=== PATIENT | male | born 1955 | race Caucasian/White ===

== ENCOUNTER 2018-10-13 12:12 | Observation (INO) ==
[2018-10-13] MEDS ORDERED: Isovue-370 500 ML INFUS..BTL IV ONE (12:23)
[2018-10-13 13:08] LABS: Hematocrit 50.9 % (37.5-50.1); Hemoglobin 17.4 g/dL (12.9-16.9); Mean Corpuscular HGB Conc 34.2 g/dL (31.6-35.5); Mean Corpuscular Hemoglobin 31.9 pg (28.0-33.3); Mean Corpuscular Volume 93.4 fL (83.0-100.0); Platelet Count 350 K/mcL (140-400); Red Blood Count 5.45 M/mcL (4.19-5.50); Red Cell Distribution Width 11.8 % (11.5-14.5)
--- NOTE | 2018-10-13 13:19 | Emergency Department Note ---
Disposition Clinical Impression: TIA (transient ischemic attack) Syncope Qualifiers: Syncope type: unspecified Qualified Code(s): R55 - Syncope and collapse Disposition: Admitted As Inpatient Condition: Good Weakness HPI - General Chief complaint: ED Weakness Stated complaint: "having strokes" Time Seen by Provider: 10/13/18 12:21 Source: patient Mode of arrival: ambulatory Limitations: no limitations Nursing Notes Reviewed: Yes Vital Signs Reviewed: Yes - History of Present Illness HPI Narrative: Patient presents to the ED with the chief complaint of "I had another stroke." Patient reports that he has had 3 previous strokes. He is followed by neurology here with Dr. Simon. States that his last MRI was just last month after his last stroke in June. States that he had one episode earlier this week where he got very lightheaded and almost passed out. He states this is the same presentation he had before. He reports that yesterday at noon. He was getting out of his truck and as soon as he stepped down he felt very lightheaded and dizzy, got tunnel vision, and states the next thing he knew he woke up, flat on the floor. He states he was very disoriented when he woke up and it took him several minutes to get up. He leaned over his workbench for some time until he felt good enough to walk inside. He is presenting now because he called the neurologist office and they told him to come over for workup. Patient denies any fever, chills, chest pain or shortness of breath. He also denies any abdominal pain, nausea, vomiting, diarrhea. No rashes or diaphoresis. Pain Scale: 0 - Related Data Home Medications Medication Instructions Recorded Confirmed RX: Lisinopril [Zestril] 5 mg PO DAILY 11/19/16 10/13/18 Aspirin [Adult Aspirin Regimen] 81 mg PO DAILY 10/13/18 10/13/18 Allergies Allergy/AdvReac Type Severity Reaction Status Date / Time No Known Allergies Allergy Verified 10/13/18 16:06 Review of Systems: As reviewed in the HPI. All other systems reviewed are negative or normal. Past Medical History - Past Medical History Attestation: Yes The following information was validated with the patient. Source: patient Medical history: Reports: hypertension, TIA Surgical history: Reports: appendectomy, other Psychiatric history: Reports: no psych history - Social History Smoking Status: Current every day smoker Smokeless Tobacco Status: No Alcohol use: Reports: occasionally, heavy Drug use: Reports: none Physical Exam CONSTITUTIONAL: [well appearing, alert and in no acute distress] EYES: [EOMI, clear conjunctiva, PERRLA] HENT: [Normocephalic, atraumatic, moist mucus membranes, normal oropharynx] NECK: [normal inspection, full ROM, trachea midline, no obvious swelling] PULMONARY: [normal lung sounds bilaterally, normal chest rise and fall, no respiratory distress or stridor, no wheezes, no rales, no rhonchi CARDIOVASCULAR: [regular rate, regular rhythm, normal heart sounds, no murmurs, distal extremities are warm and well perfused] GASTROINSTESTINAL: [soft, non-tender, non-rigid, non-distended, no guarding, no rebound, normal bowel sounds] GENITOURINARY/RECTAL: [deferred] NEUROLOGIC: [Alert, oriented x3, normal speech, moves all extremities, normal strength and sensation throughout] EXTREMITIES: [Normal inspection, full ROM, no tenderness, no pedal edema, normal capillary refill] MUSCULOSKELETAL: [no gross deformities, atraumatic] SKIN: [No cyanosis, no diaphoresis, normal color, warm, no rash] PSYCHIATRIC: [normal mood and affect] - General General appearance: alert, in no apparent distress Course - Reevaluation(s) Reevaluation #1: Patient's CTA is back. It is negative. Remains neurologically intact. In 80. We will admit the hospitalist service for neurological consult and MRI. I do t hink this is likely more of a syncopal episode and we will recommend a cardiac evaluation with echo as well Vital Signs Temperature 98.1 F 10/13/18 12:21 Pulse Rate 67 10/13/18 12:21 Respiratory Rate 14 10/13/18 12:21 Blood Pressure 125/83 10/13/18 12:21 O2 Sat by Pulse Oximetry 97 10/13/18 12:21 Temperature 98.1 F 10/13/18 12:21 Pulse Rate 68 10/13/18 15:35 Respiratory Rate 17 10/13/18 18:36 Blood Pressure 157/74 10/13/18 18:36 O2 Sat by Pulse Oximetry 97 10/13/18 15:35 Oxygen Delivery Oxygen Delivery Nasal Cannula Weakness - Lab Data Result diagrams: 10/13/18 12:28 10/13/18 12:28 Lab Results 10/13/18 10/13/18 10/13/18 Range/Units 12:28 12: 12:28 WBC 10.9 (4.3-11.1) K/mcL RBC 5.45 (4.19-5.50) M/mcL Hgb 17.4 H (12.9-16.9) g/dL Hct 50.9 H (37.5-50.1) % MCV 93.4 (83.0-100.0) fL MCH 31.9 (28.0-33.3) pg MCHC 34.2 (31.6-35.5) g/dL RDW 11.8 (11.5-14.5) % Plt Count 350 (140-400) K/mcL MPV 9.0 L (9.4-12.4) fL PT 10.6 (9.4-12.1) Seconds INR 0.9 APTT 32.7 (26.0-36.0) Seconds Sodium 137 (136-145) mEq/L Potassium 4.0 (3.5-5.1) mEq/L Chloride 103 (98-107) mEq/L Carbon Dioxide 26 (23-29) mEq/L BUN 19 (8-23) mg/dL Creatinine 0.98 (0.70-1.30) mg/dL Est GFR ( Amer) > 60 (> 60) Est GFR (Non-Af Amer) > 60 (> 60) BUN/Creatinine Ratio 19 (6-26) Glucose 99 (70-105) mg/dL POC Glucose (70-99) mg/dL Calculated Osmolality 286 (280-300) Calcium 9.4 (8.6-10.3) mg/dL Troponin I < 0.03 (< 0.04) ng/mL Urine Color (Yellow) Urine Clarity (Clear) Urine pH (5.0-8.0) pH Units Ur Specific [place] (1.010-1.025) Urine Protein (Neg-Trace) mg/dL Urine Glucose (UA) (Normal) mg/dL Urine Ketones (Negative) mg/dL Urine Blood (Negative) Urine Nitrite (Negative) Urine Bilirubin (Negative) Urine Urobilinogen (Normal) mg/dL Ur Leukocyte Esterase (Negative) Ur Culture Indicated? (NO) Urine Opiates Screen (Tatudg=370) ng/mL Ur Barbiturates Screen (Xshuad=116) ng/mL Ur Phencyclidine Scrn (Cutoff=25) ng/mL Ur Amphetamines Screen (Qxssry=1204) ng/mL U Benzodiazepines Scrn (Xgkowb=891) ng/mL Urine Cocaine Screen (Cutoff= 300) ng/mL U Marijuana (THC) Screen (Cutoff = 50) ng/mL Ur Drug Screen Interp Ethyl Alcohol 110 H (Less than 10) mg/dL 10/13/18 10/13/18 10/13/18 Range/Units 13:04 13:31 13:31 WBC (4.3-11.1) K/mcL RBC (4.19-5.50) M/mcL Hgb (12.9-16.9) g/dL Hct (37.5-50.1) % MCV (83.0-100.0) fL MCH (28.0-33.3) pg MCHC (31.6-35.5) g/dL RDW (11.5-14.5) % Plt Count (140-400) K/mcL MPV (9.4-12.4) fL PT (9.4-12.1) Seconds INR APTT (26.0-36.0) Seconds Sodium (136-145) mEq/L Potassium (3.5-5.1) mEq/L Chloride (98-107) mEq/L Carbon Dioxide (23-29) mEq/L BUN (8-23) mg/dL Creatinine (0.70-1.30) mg/dL Est GFR ( Amer) (> 60) Est GFR (Non-Af Amer) (> 60) BUN/Creatinine Ratio (6-26) Glucose (70-105) mg/dL POC Glucose 92 (70-99) mg/dL Calculated Osmolality (280-300) Calcium (8.6-10.3) mg/dL Troponin I (< 0.04) ng/mL Urine Color Yellow (Yellow) Urine Clarity Clear (Clear) Urine pH 6.0 (5.0-8.0) pH Units Ur Specific [place] 1.006 L (1.010-1.025) Urine Protein Negative (Neg-Trace) mg/dL Urine Glucose (UA) Normal (Normal) mg/dL Urine Ketones Negative (Negative) mg/dL Urine Blood Negative (Negative) Urine Nitrite Negative (Negative) Urine Bilirubin Negative (Negative) Urine Urobilinogen Normal (Normal) mg/dL Ur Leukocyte Esterase Negative (Negative) Ur Culture Indicated? NO (NO) Urine Opiates Screen Negative (Hwasmx=039) ng/mL Ur Barbiturates Screen Negative (Vqgxtb=913) ng/mL Ur Phencyclidine Scrn Negative (Cutoff=25) ng/mL Ur Amphetamines Screen Negative (Eeducz=1693) ng/mL U Benzodiazepines Scrn Negative (Ncxpqp=469) ng/mL Urine Cocaine Screen Negative (Cutoff= 300) ng/mL U Marijuana (THC) Screen Negative (Cutoff = 50) ng/mL Ur Drug Screen Interp See Below Ethyl Alcohol (Less than 10) mg/dL
[2018-10-13 13:32] LABS: BUN/Creatinine Ratio 19 (6-26); Blood Urea Nitrogen 19 mg/dL (8-23); Calcium 9.4 mg/dL (8.6-10.3); Carbon Dioxide 26 mEq/L (23-29); Chloride 103 mEq/L (98-107); Glucose 99 mg/dL (70-105); Osmolality,Calculated 286 (280-300); Sodium 137 mEq/L (136-145); Troponin I < 0.03 ng/mL (< 0.04); eGFR For Non-African Americans > 60 (> 60)
[2018-10-13 13:40] LABS: INR 0.9; Prothrombin Time 10.6 Seconds (9.4-12.1)
[2018-10-13 13:43] LABS: Activated Partial Thrombo Time 32.7 Seconds (26.0-36.0)
[2018-10-13 15:09] LABS: Bilirubin,Urine Negative (Negative); Blood,Urine Negative (Negative); Clarity,Urine Clear (Clear); Color,Urine Yellow (Yellow); Glucose,Urine (UA) Normal (Normal); Ketones,Urine Negative (Negative); Leukocyte Esterase,Urine Negative (Negative); Nitrite,Urine Negative (Negative); Protein,Urine Negative (Neg-Trace); Specific Gravity,Urine 1.006 (1.010-1.025); Urobilinogen,Urine Normal (Normal)
[2018-10-13 15:30] LABS: Amphetamine Screen,Urine Negative ng/mL (Cutoff=1000); Barbiturate Screen,Urine Negative ng/mL (Cutoff=200); Benzodiazepines Screen,Urine Negative ng/mL (Cutoff=200); Cannabinoid Screen,Urine Negative ng/mL (Cutoff = 50); Cocaine Screen,Urine Negative ng/mL (Cutoff= 300); Opiate Screen,Urine Negative ng/mL (Cutoff=300); Phencyclidine Screen,Urine Negative ng/mL (Cutoff=25)
[2018-10-13] MEDS ORDERED: Acetaminophen 325 MG TABLET PO PRN (16:43)
--- NOTE | 2018-10-13 16:44 | Emergency Department Note ---
Disposition Clinical Impression: TIA (transient ischemic attack) Syncope Qualifiers: Syncope type: unspecified Qualified Code(s): R55 - Syncope and collapse Disposition: Admitted As Inpatient Condition: Good Referrals: Lenard Velasquez MD [Primary Care Provider] - Forms: ED Satisfaction Letter Time of Disposition: 16:45 General Adult HPI - General Chief complaint: ED Weakness Stated complaint: "having strokes" Time Seen by Provider: 10/13/18 12:21 Source: patient Mode of arrival: ambulatory Limitations: no limitations - History of Present Illness Pain Scale: 0 - Related Data Home Medications Medication Instructions Recorded Confirmed Lisinopril [Zestril] 5 mg PO DAILY 11/19/16 10/13/18 Aspirin [Adult Aspirin Regimen] 81 mg PO DAILY 10/13/18 10/13/18 Allergies Allergy/AdvReac Type Severity Reaction Status Date / Time No Known Allergies Allergy Verified 10/13/18 16:06 Past Medical History - Past Medical History Medical history: Reports: hypertension, TIA Surgical history: Reports: appendectomy, other Psychiatric history: Reports: no psych history - Social History Smoking Status: Current every day smoker Smokeless Tobacco Status: No Alcohol use: Reports: occasionally, heavy Drug use: Reports: none Physical Exam - General Limitations: no limitations General appearance: alert, in no apparent distress Course Vital Signs Temperature 98.1 F 10/13/18 12:21 Pulse Rate 67 10/13/18 12:21 Respiratory Rate 14 10/13/18 12:21 Blood Pressure 125/83 10/13/18 12:21 O2 Sat by Pulse Oximetry 97 10/13/18 12:21 Temperature 98.1 F 10/13/18 12:21 Pulse Rate 68 10/13/18 15:35 Respiratory Rate 16 10/13/18 15:35 Blood Pressure 127/65 10/13/18 15:35 O2 Sat by Pulse Oximetry 97 10/13/18 15:35 Oxygen Delivery Oxygen Delivery Room Air Medical Decision Making - Lab Data Result diagrams: 10/13/18 12:28 10/13/18 12:28 Lab Results 10/13/18 10/13/18 10/13/18 Range/Units 12:28 12:28 12:28 WBC 10.9 (4.3-11.1) K/mcL RBC 5.45 (4.19-5.50) M/mcL Hgb 17.4 H (12.9-16.9) g/dL Hct 50.9 H (37.5-50.1) % MCV 93.4 (83.0-100.0) fL MCH 31.9 (28.0-33.3) pg MCHC 34.2 (31.6-35.5) g/dL RDW 11.8 (11.5-14.5) % Plt Count 350 (140-400) K/mcL MPV 9.0 L (9.4-12.4) fL PT 10.6 (9.4-12.1) Seconds INR 0.9 APTT 32.7 (26.0-36.0) Seconds Sodium 137 (136-145) mEq/L Potassium 4.0 (3.5-5.1) mEq/L Chloride 103 (98-107) mEq/L Carbon Dioxide 26 (23-29) mEq/L BUN 19 (8-23) mg/dL Creatinine 0.98 (0.70-1.30) mg/dL Est GFR ( Amer) > 60 (> 60) Est GFR (Non-Af Amer) > 60 (> 60) BUN/Creatinine Ratio 19 (6-26) Glucose 99 (70-105) mg/dL POC Glucose (70-99) mg/dL Calculated Osmolality 286 (280-300) Calcium 9.4 (8.6-10.3) mg/dL Troponin I < 0.03 (< 0.04) ng/mL Urine Color (Yellow) Urine Clarity (Clear) Urine pH (5.0-8.0) pH Units Ur Specific [place] (1.010-1.025) Urine Protein (Neg-Trace) mg/dL Urine Glucose (UA) (Normal) mg/dL Urine Ketones (Negative) mg/dL Urine Blood (Negative) Urine Nitrite (Negative) Urine Bilirubin (Negative) Urine Urobilinogen (Normal) mg/dL Ur Leukocyte Esterase (Negative) Ur Culture Indicated? (NO) Urine Opiates Screen (Embnds=477) ng/mL Ur Barbiturates Screen (Mnsxxq=516) ng/mL Ur Phencyclidine Scrn (Cutoff=25) ng/mL Ur Amphetamines Screen (Cuvums=9920) ng/mL U Benzodiazepines Scrn (Cpmmdi=957) ng/mL Urine Cocaine Screen (Cutoff= 300) ng/mL U Marijuana (THC) Screen (Cutoff = 50) ng/mL Ur Drug Screen Interp 10/13/18 10/13/18 10/13/18 Range/Units 13:04 13:31 13:31 WBC (4.3-11.1) K/mcL RBC (4.19-5.50) M/mcL Hgb (12.9-16.9) g/dL Hct (37.5-50.1) % MCV (83.0-100.0) fL MCH (28.0-33.3) pg MCHC (31.6-35.5) g/dL RDW (11.5-14.5) % Plt Count (140-400) K/mcL MPV (9.4-12.4) fL PT (9.4-12.1) Seconds INR APTT (26.0-36.0) Seconds Sodium (136-145) mEq/L Potassium (3.5-5.1) mEq/L Chloride (98-107) mEq/L Carbon Dioxide (23-29) mEq/L BUN (8-23) mg/dL Creatinine (0.70-1.30) mg/dL Est GFR ( Amer) (> 60) Est GFR (Non-Af Amer) (> 60) BUN/Creatinine Ratio (6-26) Glucose (70-105) mg/dL POC Glucose 92 (70-99) mg/dL Calculated Osmolality (280-300) Calcium (8.6-10.3) mg/dL Troponin I (< 0.04) ng/mL Urine Color Yellow (Yellow) Urine Clarity Clear (Clear) Urine pH 6.0 (5.0-8.0) pH Units Ur Specific [place] 1.006 L (1.010-1.025) Urine Protein Negative (Neg-Trace) mg/dL Urine Glucose (UA) Normal (Normal) mg/dL Urine Ketones Negative (Negative) mg/dL Urine Blood Negative (Negative) Urine Nitrite Negative (Negative) Urine Bilirubin Negative (Negative) Urine Urobilinogen Normal (Normal) mg/dL Ur Leukocyte Esterase Negative (Negative) Ur Culture Indicated? NO (NO) Urine Opiates Screen Negative (Xzfagl=687) ng/mL Ur Barbiturates Screen Negative (Bpnkai=893) ng/mL Ur Phencyclidine Scrn Negative (Cutoff=25) ng/mL Ur Amphetamines Screen Negative (Vgewoj=8108) ng/mL U Benzodiazepines Scrn Negative (Eplgju=920) ng/mL Urine Cocaine Screen Negative (Cutoff= 300) ng/mL U Marijuana (THC) Screen Negative (Cutoff = 50) ng/mL Ur Drug Screen Interp See Below Attestation Statement - Attestation Attestation: I examined this patient and my medical decision-making was reviewed with the Resident Physician. I agree with the documented findings, disposition and treatment plan as described except to the extent set forth below. 63 year old male presents to the Ed with complaints of stroke like symptoms and states that he has been having increased episodes of syncope and near syncope espexially the symptoms get worse when he turns his head. Patinet CTA head and neck are negative but he states the last time he had a stroke he presented similar. We will admit to medicine.
--- NOTE | 2018-10-13 16:56 | Internal Med History&Physical ---
Date of Encounter: 10/13/18 Time of Encounter: 16:48 Internal Medicine - H&P: HPI Chief complaint: dizziness Admitted From: Home Plans for Post Hospital Care: Home History of present illness: Mr. Perez is a 63 year old male with history of left cerebellar hemisphere and vermis stroke, hypertension and obesity presented to the emergency department with complaint of dizziness. As per patient yesterday afternoon he was walking in his garage when he suddenly felt as though the room was spinning around him, his vision went black and he lowered himself on the floor. He denies incontinence, abnormal movement of his extremities, and reports that the episodes lasted only for a few minutes. He denies loss of consciousness, head trauma, nausea, diaphoresis or palpitations associated with the episode. Immediately after the episode he helped himself up and walked inside the house. The next morning he decided to call his primary care physician who recommended him to call his neurologist Dr. Simon. Dr. Simon recommended that he come to the emergency department for further evaluation of his symptoms as he has had previous history of strokes. He cannot recall aggravating or alleviating factors. He denies recent upper respiratory tract infections, he denies ringing in his ear. He does report that rapid movement of his head [id number] causes him to develop similar symptoms. While in the emergency department CT head performed which was negative for any acute infarct. He was endorsed for admission and further evaluation of his dizziness He denies fever, chills, nausea, vomiting, diarrhea, shortness of breath, cough, chest pain, palpitations, heat or cold intolerance. Past Med Surg Social Fam HX - Past Medical History Medical history: hypertension, TIA Additional medical history: HERNIA Psychiatric history: no psych history - Past Surgical History Surgical History: appendectomy, other Additional surgical history: HYDROCELECTOMY - Social History Smoking Status: Current every day smoker Smokeless Tobacco Status: No Alcohol use: occasionally, heavy Drug use: none Internal Medicine - H&P: Meds Lisinopril [Zestril] 5 mg PO DAILY 11/19/16 [History] Aspirin [Adult Aspirin Regimen] 81 mg PO DAILY 10/13/18 [History] Allergy/AdvReac Type Severity Reaction Status Date / Time No Known Allergies Allergy Verified 10/13/18 16:06 All Systems PM: A 10-system review of systems was performed and is negative for pertinent findings except as documented above in the HPI. - Constitutional Vitals: Temp Pulse Resp BP Pulse Ox 98.1 F 68 16 127/65 97 10/13/18 12:21 10/13/18 15:35 10/13/18 15:35 10/13/18 15:35 10/13/18 15:35 Exam: General: Patient is alert, oriented, no acute distress, obese Head: atraumatic, normocephalic, Eye: normal appearance, PERRL, no scleral icterus, no conjunctival injection ENT: mucous membranes moist, normal external ear exam Neck: normal inspection, trachea midline, full ROM, no carotid bruits Chest: normal inspection, symmetric chest rise Respiratory: Good respiratory effort. Bilateral breath sounds are clear without wheezing, crackles, or rhonchi. Cardiovascular: Regular rate and rhythm. s1 and s2 No clicks, rubs, gallops, or murmors. Abdomen: Bowel sounds present normoactive x-4 quadrants. Abdomen is soft, nondistended. no Epigastric tenderness. No guarding or rebound. No organomegaly noted, obese musculoskeletal: Spontaneously moving all extremities. no edema, no calf tenderness Skin: warm, dry, intact. Neuro: Alert and oriented x4. Sensation light touch intact. Cranial nerves 2- 12 is intact. Not aphasic, rapid hand movements intact, pjqtfp-[id number] intact, ipui-[id number] intact, negative pronator sign Psych: Patient's affect is normal Internal Med - H&P Results - Labs CBC & Chem 7: 10/13/18 12:28 10/13/18 12:28 Labs: Short CBC 10/13/18 Range/Units 12:28 WBC 10.9 (4.3-11.1) K/mcL Hgb 17.4 H (12.9-16.9) g/dL Hct 50.9 H (37.5-50.1) % Plt Count 350 (140-400) K/mcL BMP 10/13/18 12:28 Sodium 137 Potassium 4.0 Chloride 103 Carbon Dioxide 26 BUN 19 Creatinine 0.98 Glucose 99 Calcium 9.4 Cardiac Enzymes 10/13/18 Range/Units 12:28 Troponin I < 0.03 (< 0.04) ng/mL Urine 10/13/18 Range/Units 13:31 Urine Color Yellow (Yellow) Urine Clarity Clear (Clear) Urine pH 6.0 (5.0-8.0) pH Units Ur Specific [place] 1.006 L (1.010-1.025) Urine Protein Negative (Neg-Trace) mg/dL Urine Glucose (UA) Normal (Normal) mg/dL - Impressions ITS Impressions Angiography CT 10/13/18 12:23 IMPRESSION: 1. No acute intracranial abnormality. 2. No flow limiting stenosis of the cervical carotid or vertebral arteries. 3. No focal stenosis of the asvzgi-zy-Rzwoca. D/ / Danilo Torre MD / Danilo Torre MD Interpreting Provider: Danilo Torre MD Neck CTA 10/13/18 12:23 IMPRESSION: 1. No acute intracranial abnormality. 2. No flow limiting stenosis of the cervical carotid or vertebral arteries. 3. No focal stenosis of the [id number]-wb-Kzmhxs. D/ / Danilo Torre MD / Danilo Torre MD Interpreting Provider: Danilo Torre MD Chest X-Ray 10/13/18 12:48 IMPRESSION: No significant findings in the chest. D/ / Moo Katz MD / Moo Katz MD Interpreting Provider: Moo Katz MD - Assessment and plan (1) TIA (transient ischemic attack) Current Visit: Yes Status: Acute Assessment and plan: Patient with history of cerebellar stroke presented with dizziness rule out posterior fossa stroke CTA head and neck performed in the emergency department were unremarkable for any acute disease. As symptoms occurred on aspirin and will change to Plavix Lipitor 80 mg daily at bedtime Neuro checks as per protocol Echocardiogram with bubble study MRI head without contrast We will check lipid panel, A1c, TSH in the morning If he develops change in mental status obtain stat CT head ETOH, UTOX CTA head and neck: IMPRESSION: 1. No acute intracranial abnormality. 2. No flow limiting stenosis of the cervical carotid or vertebral arteries. 3. No focal stenosis of the xmzcnv-fr-Zbqfqb. EEG 09/09/18: Normal awake drowsy electroencephalogram. No epileptiform discharges or any other paroxysmal activities noted. (2) Syncope Current Visit: Yes Status: Acute Assessment and plan: Dizziness and syncope rule out arrhythmia Has had tilt table performed a few months ago which was negative Will obtain echocardiogram Continuous telemetry monitoring Follow precautions Assessment the management as per above (3) KYLER on CPAP Current Visit: Yes Status: Acute Assessment and plan: sleep study on 08/2018- This overnight polysomnography demonstrated overall mild KYLER associated with mild oxygen desaturations, per AAMS criteria. This is the minimal degree of KYLER that can contribute to the patients daytime sleepiness and may increase cardiovascular morbidity and mortality. cpap at night with home setting. (4) Smoker Current Visit: Yes Status: Acute Assessment and plan: nicotine patch was counseled (5) Erythrocytosis Current Visit: Yes Status: Acute Assessment and plan: Chronic erythrocytosis- most likely secondary to KYLER and chronic tobacco use Hemoglobin level was 17 in 11/14/2016 Currently hemoglobin of 17.4 and hematocrit of 50.9 We will send erythropoietin hematology consulted as he has recurrent strokes . (6) Obesity (BMI 30.0-34.9) Current Visit: Yes Status: Acute Assessment and plan: was counseled nutrition consult (7) DVT prophylaxis Current Visit: Yes Status: Acute Assessment and plan: Heparin subcutaneous - Time Spent With Patient Total time spent is greater than 50% in coordination of care (as documented) at patient's floor/unit and/or counseling patient:
[2018-10-13 17:22] LABS: Ethanol 110 mg/dL (Less than 10)
[2018-10-13] MEDS: *HR* Heparin 5,000 UNIT/ML VIAL SQ SCH (21:22)
[2018-10-14] MEDS: *HR* Heparin 5,000 UNIT/ML VIAL SQ SCH (05:23)
[2018-10-14 05:45] LABS: Hematocrit 48.1 % (37.5-50.1); Mean Corpuscular HGB Conc 33.3 g/dL (31.6-35.5); Mean Corpuscular Hemoglobin 31.3 pg (28.0-33.3); Mean Corpuscular Volume 94.1 fL (83.0-100.0); Mean Platelet Volume 9.2 fL (9.4-12.4); Platelet Count 320 K/mcL (140-400); Red Blood Count 5.11 M/mcL (4.19-5.50); Red Cell Distribution Width 11.9 % (11.5-14.5)
[2018-10-14 05:59] LABS: BUN/Creatinine Ratio 22 (6-26); Blood Urea Nitrogen 22 mg/dL (8-23); Carbon Dioxide 23 mEq/L (23-29); Chloride 105 mEq/L (98-107); Chol/HDL Ratio 5.3 (0-4.9); Cholesterol 181 mg/dL (< 200); Glucose 106 mg/dL (70-105); HDL Cholesterol 34 mg/dL (40-59); LDL Cholesterol,Calculated 111 mg/dL (0-99); Magnesium 2.2 mg/dL (1.6-2.6); Osmolality,Calculated 288 (280-300); Phosphorous 4.6 mg/dL (2.7-4.5); Potassium 4.4 mEq/L (3.5-5.1); Prothrombin Time 11.2 Seconds (9.4-12.1); Sodium 137 mEq/L (136-145); Triglycerides 179 mg/dL (< 150); eGFR For Non-African Americans > 60 (> 60)
[2018-10-14 07:48] VITALS: BP 148/85
[2018-10-14 08:00] LABS: Estimated Average Glucose 126 mg/dl
[2018-10-14] MEDS ORDERED: Nicotine 14 MG PATCH.TD24 TD SCH (09:00)
--- NOTE | 2018-10-14 09:13 | Neurology - Consult Note ---
Addendum entered and electronically signed by Christofer Godinez MD 10/14/18 17:01: Patient seen and examined. Case discussed and imaging studies reviewed together with Dr. Clint Helms. I agree with his history taking, physical examination, assessment and plan outlined below. in summery, patient with history of cerebellar infarct who developed an episode of vertigo lasting 15 minutes in duration, without any otological or autonomic symptoms. Negative MRI of brain for stroke. Could be related an episode of BPPV. Currently asymptomatic and no nystagmus or other focal neurological findings. Patient is miguel to be discharged home. If symptoms recur, ENT consultation may be needed for hearing testing/VNG testing Original Note: Date of Encounter: 10/14/18 Time of Encounter: 09:13 Assessment and Plan (1) TIA (transient ischemic attack) Current Visit: Yes Status: Acute - Patient presented after an episode of dizziness and visual disturbance without loss of consciousness - Patient has a known history of cerebellar stroke - CTA of the head and neck performed in the emergency department were unremarkable for acute process - Patient was started on Plavix and Lipitor - MRI showed remote lacunar infarcts in the cerebellar region - Ethyl alcohol level elevated at 110 Plan: - Echocardiogram with bubble study has been ordered - Neuro checks per protocol - Continue stroke precautions (2) Erythrocytosis Current Visit: Yes Status: Chronic - Patient presented with an elevated hemoglobin level of 17.4 - Chart review shows an elevated hemoglobin and 17 on 11/14/2016 - No other records available for comparison - Patient does have a history of KYLER and tobacco use - EPO level has been ordered - Hematology has been consulted (3) KYLER on CPAP Current Visit: Yes Status: Acute - CPAP at night (4) Obesity (BMI 30.0-34.9) Current Visit: Yes Status: Acute History of Present Illness HPI: Clinton Perez is a 63 year old male with a PMH of L cerebellar hemisphere and vermis stroke, HTN, TIA, and obesity who presented to [facility] ED on 10/13/18 with a chief complaint of dizziness. Patient was walking in his garage when he suddenly felt as though the room was spinning. His vision went black and he lowered himself to the floor. This episode lasted a few minutes. Denied loss of consciousness or head trauma. Patient immediately call his primary care physician, who recommended that he call his neurologist Dr. Simon. Dr. Simon recommended patient go to the emergency department for further evaluation. He has a known history of previous strokes. Patient reports that rapid movement of his head from side to side will cause him to develop similar symptoms. Upon arrival, CT of the head was negative for acute infarct. Neck CTA showed no flow-limiting stenosis of the cervical carotid or vertebral arteries, and no focal stenosis of the [place]. Patient was started on Plavix and Lipitor. Echocardiogram cardiogram will study ordered. MRI of the brain showed remote lacunar infarcts in the left cerebellum. Toxicology screen demonstrated an ethyl alcohol level of 110. Patient was also placed on stroke precautions. Patient was seen and examined at bedside; patient states that he is feeling better today than when he did on admission. He denies dizziness, lightheadedness, numbness, tingling, difficulty walking, vertigo, headache, or visual disturbances. He has no complaints at this time. Past Med Surg Social Fam HX - Past Medical History Medical history: hypertension, TIA Additional medical history: HERNIA Psychiatric history: no psych history - Past Surgical History Surgical History: appendectomy, other Additional surgical history: hernia surgery - Social History Smoking Status: Current every day smoker Packs per day: 1 Smokeless Tobacco Status: No Alcohol use: occasionally Drug use: none - Family History Mother Adopted: No Living Status: Age at : 78 Cause of : COPD Hx Family Cardiac Disorders: No Hx Family Respiratory Disorders: Yes (COPD) Hx Family Cancer: No Hx Family GI Disorders: No Hx Family Genitourinary Disorders: No Hx Family Endocrine Disorder: No Hx Family Musculoskeletal Disorders: No Hx Family Neuromuscular Disorders: No Hx Family Neurologic Disorders: No Hx Family HEENT Disorders: No Hx Family Autoimmune Disorders: No Hx Family Reproductive Disorders: No Hx Family Psychosocial Disorders: No Medications and Allergies Lisinopril [Zestril] 5 mg PO DAILY 11/19/16 [History] Atorvastatin [Lipitor] 80 mg PO HS 30 Days #30 tablet 10/14/18 [Rx] Clopidogrel [Plavix] 75 mg PO DAILY 30 Days #30 tablet 10/14/18 [Rx] Allergy/AdvReac Type Severity Reaction Status Date / Time No Known Allergies Allergy Verified 10/13/18 16:06 All Systems: The remainder of the systems were reviewed and are negative - Constitutional Constitutional ROS IM: as per HPI, no fever(s), no lethargy, no malaise - Cardiovascular Cardiovascular ROS IM: as per HPI, no chest pain, no chest pain with activity, no claudication, no dyspnea on exertion, no edema - Respiratory Respiratory IM: as per HPI, no wheezing - Musculoskeletal Musculoskeletal ROS IM: as per HPI, no abnormal gait, no numbness, no tingling - Neurological Neurological ROS: as per HPI, no dizziness, no headache(s), no loss of vision, no numbness, no sensory deficit, no vertigo, no weakness Physical Examination - Vital Signs Vital Signs: Initial Vital Signs Temp Pulse Resp BP Pulse Ox 98.1 F 67 14 125/83 97 10/13/18 12:21 10/13/18 12:21 10/13/18 12:21 10/13/18 12:21 10/13/18 12:21 - Constitutional General appearance: comfortable - Neurologic Sensorimotor examination: intact Motor examination - right side: 5/5: biceps, triceps, wrist flexion, wrist extension Motor examination - left side: 5/5: biceps, triceps, wrist flexion, wrist extens ion Reflex and gait examination: normal gait Mental Status Examination: awake, alert, oriented to person, oriented to place, oriented to time Cranial nerve examination: PERRL, EOMI, visual dean intact, no dysarthria Cerebellar examination: no gait ataxia, no difficulty with rapid alternating movements Results - Laboratory Findings CBC and BMP: 10/14/18 04:12 10/14/18 04:12 Abnormal lab findings: Abnormal lab results MPV 9.2 fL (9.4-12.4) L 10/14/18 04:12 Glucose 106 mg/dL (70-105) H 10/14/18 04:12 POC Glucose 111 mg/dL (70-99) H 10/14/18 03:12 Phosphorus 4.6 mg/dL (2.7-4.5) H 10/14/18 04:12 Triglycerides 179 mg/dL (< 150) H 10/14/18 04:12 LDL Cholesterol, Calc 111 mg/dL (0-99) H 10/14/18 04:12 VLDL Cholesterol, Calc 36 mg/dL (< 31) H 10/14/18 04:12 HDL Cholesterol 34 mg/dL (40-59) L 10/14/18 04:12 Cholesterol/HDL Ratio 5.3 (0-4.9) H 10/14/18 04:12 Ur Specific [place] 1.006 (1.010-1.025) L 10/13/18 13:31 Ethyl Alcohol 110 mg/dL (Less than 10) H 10/13/18 12:28 Consult Discharge Plan - Plan Referrals: Lenard Velasquez MD [Primary Care Provider] - 10/30/18 1:00 pm Natividad Simon MD [Partnered Physician] - Prescriptions: Atorvastatin [Lipitor] 80 mg PO HS 30 Days #30 tablet Clopidogrel [Plavix] 75 mg PO DAILY 30 Days #30 tablet
--- NOTE | 2018-10-14 10:09 | Discharge Summary ---
<Pearl Cruz - Last Filed: 10/14/18 10:07> Orders not resulted at time of discharge: Pending orders 10/14/18 04:12 Erythropoietin AM 0400 Date of Encounter: 10/14/18 Time of Encounter: 10:07 - Discharge Diagnosis (1) TIA (transient ischemic attack) Priority: Primary Status: Acute Assessment and Plan: occurred with ASA therapy CTA head and neck in ER WNL MRI shows remote lacunar infarcts left cerebellum (2) Syncope Priority: Secondary Status: Acute Assessment and Plan: tilt table negative 08/11/18 echo 10/14/18 EF 55-60%, mild concentric LV hypertrophy, mild aortic regurgitation Qualifiers: Syncope type: unspecified Qualified Code(s): R55 - Syncope and collapse (3) Erythrocytosis Priority: Secondary Status: Chronic Assessment and Plan: chronic PMH of alcohol use, tobacco abuse, and KYLER on CPAP Hospital course: Mr. Perez is a 63 year old male admitted for lightheadedness, dizziness, and syncope. PMH of 3 previous CVA, follows with Dr. Simon - neurology. MRI showed remote lacunar infarcts left cerebellum. His daily ASA was changed to plavix and he was started on high dose lipitor. On the day of discharge, he is asking to be discharged. Discharge discussed with: patient - Time Spent with Patient Total time spent providing and/or coordinating discharge services: - Discharge Medications Allergies/Adverse Reactions: Allergy/AdvReac Type Severity Reaction Status Date / Time No Known Allergies Allergy Verified 10/13/18 16:06 Date of admission: 10/13/18 18:19 Primary care physician: Lenard Velasquez MD Consults: 10/13/18 16:43 Consult to Neurology [CONS] Routine Consulting Provider: Neurology [facility] Reason for Consult: dizziness rul eout stroke Call Completed: No 10/13/18 16:46 Consult to Case Management [CONS] Routine Comment: Consult to Physical Therapy [CONS] Routine Comment: Evaluate, develop and implement POC Reason for Consult: dispostion Does patient have active BEDREST order?: No Is patient medically & hemodynamically stable?: Yes Patient assessed for mobility or mobilized this visit?: Yes Discharging clinician: Pearl Cruz Anticipated date of discharge: 10/14/18 - Constitutional Vitals: Temp Pulse Resp BP Pulse Ox 98.0 F 71 16 148/85 96 10/14/18 07:47 10/14/18 07:47 10/14/18 07:47 10/14/18 07:47 10/14/18 07:47 General appearance: Present: A&O X 3, no acute distress, answers questions appropriately Exam: . - Head Head exam: Present: atraumatic, normocephalic - Eye Eye exam: Present: PERRL, conjuntiva pink, sclera anicteric Pupils: Present: PERRL - Neck Neck exam general surgery: Present: supple, trachea midline - Respiratory Respiratory exam: Present: CTAB - Cardiovascular Cardiovascular exam: Present: RRR - GI/Abdominal GI/Abdominal exam: Present: normal bowel sounds, soft. Absent: tenderness - Extremities Exam Extremities exam: Absent: pedal edema Additional comments: posterior tibial pulses 2/4 bilateral and equal - Neurological Exam Neurological exam: Present: alert, oriented X3, no focal deficits - Skin Skin exam: Present: dry, intact, warm - Patient Status Disposition: Home, Self-Care Condition: Good Functional capacity at discharge: independent ambulation Overall status at discharge: patient is back to baseline - Discharge Instructions Instructions: Syncope (GEN), Cigarette Smoking and Your Health (GEN) Follow Up With: Lenard Velasquez MD [Primary Care Provider] - 10/30/18 1:00 pm Natividad Simon MD [Partnered Physician] - - Diet and Activity Activity: resume usual activities as tolerated Diet: low fat, low cholesterol <Thallapaneni,Rambabu - Last Filed: 10/14/18 12:20> Orders not resulted at time of discharge: Pending orders 10/14/18 04:12 Erythropoietin AM 0400 Date of Encounter: 10/14/18 - Discharge Diagnosis (1) TIA (transient ischemic attack) Status: Acute (2) Syncope Status: Acute (3) DVT prophylaxis Status: Acute (4) KYLER on CPAP Status: Acute (5) Smoker Status: Acute (6) Obesity (BMI 30.0-34.9) Status: Acute (7) Erythrocytosis Status: Chronic Hospital course: Mr. Perez is a 63 year old male - Time Spent with Patient Total time spent providing and/or coordinating discharge services: Date of admission: 10/13/18 18:19 Primary care physician: Lenard Velasquez MD Consults: 10/13/18 16:43 Consult to Neurology [CONS] Routine Consulting Provider: Neurology [facility] Reason for Consult: dizziness rul eout stroke Call Completed: No 10/13/18 16:46 Consult to Case Management [CONS] Routine Comment: Consult to Physical Therapy [CONS] Routine Comment: Evaluate, develop and implement POC Reason for Consult: dispostion Does patient have active BEDREST order?: No Is patient medically & hemodynamically stable?: Yes Patient assessed for mobility or mobilized this visit?: Yes - Constitutional Vitals: Temp Pulse Resp BP Pulse Ox 98.0 F 71 16 148/85 96 10/14/18 07:47 10/14/18 07:47 10/14/18 07:47 10/14/18 07:47 10/14/18 07:47 - Attending Attestation I examined this patient and my medical decision-making was reviewed with the Resident Physician Dr. Cruz. I agree with the documented findings, disposition and treatment plan as described except to the extent set forth below. Mr. Perez is a 63 year old male with history of left cerebellar hemisphere and vermis stroke, hypertension and obesity presented to the emergency department with complaint of dizziness. Pt was admitted in the hospital and placed him youth nutritional monitor. His CT head was negative for any acute infarct. His brain MRI showed no acute infarcts. At this point pt was evaluated by Neuro and recommend to switch to Plavix and Inc lipitor to 80mg sine his LDL @ 111. Pt left the hospital before I saw him. So I talked to him over the ph. Pt stated he felt lot better today , denied any more dizziness. Explained to him about importance of quitting smoking tobacco and drinking alcohol and using CPAP regularly. Recommend to f/u with Neuro as an out pt.
--- NOTE | 2018-10-14 10:17 | Oncology Inp Consult Note ---
Date of Encounter: 10/14/18 Time of Encounter: 10:12 - Data of Consult Patient: new to practice Consult date: 10/13/18 Requesting Physician: Linda Garvni MD Primary Care Provider: Lenard Velasquez MD - Consult Narrative Reason for consult: erythrocytosis History of present illness: Mr. Perez is a 63-year-old male with past medical history of left cerebellar hemisphere and vermis stroke, hypertension, obesity. He presented to the emergency department on 10/13/18 with chief complaint of dizziness. Past Med Surg Social Fam HX - Past Medical History Medical history: hypertension, TIA Additional medical history: HERNIA Psychiatric history: no psych history - Past Surgical History Surgical History: appendectomy, other Additional surgical history: hernia surgery - Social History Smoking Status: Current every day smoker Packs per day: 1 Smokeless Tobacco Status: No Alcohol use: occasionally Drug use: none - Family History Mother Adopted: No Living Status: Age at : 78 Cause of : COPD Hx Family Cardiac Disorders: No Hx Family Respiratory Disorders: Yes (COPD) Hx Family Cancer: No Hx Family GI Disorders: No Hx Family Genitourinary Disorders: No Hx Family Endocrine Disorder: No Hx Family Musculoskeletal Disorders: No Hx Family Neuromuscular Disorders: No Hx Family Neurologic Disorders: No Hx Family HEENT Disorders: No Hx Family Autoimmune Disorders: No Hx Family Reproductive Disorders: No Hx Family Psychosocial Disorders: No Medications and Allergies Lisinopril [Zestril] 5 mg PO DAILY 11/19/16 [History] Aspirin [Adult Aspirin Regimen] 81 mg PO DAILY 10/13/18 [History] Allergy/AdvReac Type Severity Reaction Status Date / Time No Known Allergies Allergy Verified 10/13/18 16:06 Consult Discharge Plan - Plan Referrals: Lenard Velasquez MD [Primary Care Provider] -
--- NOTE | 2018-10-14 17:29 | Electrocardiograph Report ---
[place] [id number] Test Date: 2018-10-13 Pat Name: Clinton Perez Department: [id number] Room: 3B22 Gender: M Spar Finisher: : 1955 Requested By: Stephani Urrutia Order Number: [id number] Reading MD: Carrol Christie Measurements Intervals Whitney Rate: 70 P: 63 NE: 187 QRS: 0 QRSD: 95 T: 69 QT: 391 QTc: 422 Interpretive Statements Sinus rhythm Borderline low voltage, extremity leads Electronically Signed On 10-14-2018 17:27:56 EST by Carrol Christie
== END 2018-10-14 11:19 | disposition home or self-care (01) ==
LOC: 3BNU 12:12 → EMEROOARM 12:12 → SUATTDRO 18:19 → 3BNU 18:38
PROVIDERS: ADMIT Internal Medicine; ATTEND Family Medicine